=== PATIENT | male | born 1990 | race Caucasian/White ===

== ENCOUNTER 2016-12-23 17:38 | Emergency (ER) | payer OTHER ==
[~2016-12-23] VITALS: Ht 185.4 cm; Wt 81.8 kg
[2016-12-23] MEDS ORDERED: GABA-531 PO (17:42)
[2016-12-23] MEDS ORDERED: GABAPENTIN 300 MG CAPSULE PO ONE (20:15)
[2016-12-23 20:21] VITALS: BP 129/82
== END 2016-12-23 20:23 | disposition home or self-care (01) ==
LOC: EMS 17:40
DX: Z76.0 Encounter for issue of repeat prescription (principal); F17.210 Nicotine dependence, cigarettes, uncomplicated
CPT/HCPCS: 99283

== ENCOUNTER 2018-03-04 15:50 | Emergency (ER) | payer OTHER ==
[~2018-03-04] VITALS: Ht 175.3 cm; Wt 72.7 kg
[~2018-03-04 15:50] MED LIST: GABA-531 PO
[2018-03-04] MEDS ORDERED: GABAPENTIN 400 MG CAPSULE PO ONE (16:30)
[2018-03-04] MEDS ORDERED: IBUPROFEN 600 MG TABLET PO ONE (16:30)
[2018-03-04 17:19] VITALS: BP 145/82
== END 2018-03-04 17:21 | disposition home or self-care (01) ==
LOC: EMS 15:51
DX: S60.221A Contusion of right hand, initial encounter (principal); F41.9 Anxiety disorder, unspecified; G62.9 Polyneuropathy, unspecified; F17.210 Nicotine dependence, cigarettes, uncomplicated; F19.90 Other psychoactive substance use, unspecified, uncomplicated; Y04.0XXA Assault by unarmed brawl or fight, initial encounter; Y93.89 Activity, other specified; Y92.148 Other place in prison as the place of occurrence of the external cause; Y99.8 Other external cause status
CPT/HCPCS: 99284; 99406

== ENCOUNTER 2018-03-11 15:41 | Emergency (ER) | payer OTHER ==
[~2018-03-11] VITALS: Ht 185.4 cm; Wt 72.7 kg
[2018-03-11] MEDS ORDERED: GABAPENTIN 400 MG CAPSULE PO ONE (17:00)
[2018-03-11 17:17] VITALS: BP 130/90
== END 2018-03-11 17:19 | disposition home or self-care (01) ==
LOC: EMS 15:41
DX: M79.601 Pain in right arm (principal); Z76.0 Encounter for issue of repeat prescription; G62.9 Polyneuropathy, unspecified; Z79.899 Other long term (current) drug therapy
CPT/HCPCS: 99283

== ENCOUNTER 2018-09-07 19:17 | Emergency (ER) | payer OTHER | END 2018-09-07 20:25 | disposition left against medical advice (07) | LOC: EMS 19:18 | DX: Z53.21 Procedure and treatment not carried out due to patient leaving prior to being seen by health care provider (principal) ==

== ENCOUNTER 2019-12-11 18:25 | Emergency (ER) | payer MEDICAID, OTHER ==
[~2019-12-11] VITALS: Ht 185.4 cm; Wt 85.5 kg
[~2019-12-11 18:25] MED LIST changes: +GABA-1181 PO; -GABA-531 PO
[2019-12-11 19:45] VITALS: BP 143/90
[2019-12-11 20:12] LABS: HEMOGLOBIN 14.6 g/dL (13.5-17.5); RED BLOOD CELL COUNT(AUTO) 4.83 MIL/uL (4.50-5.90)
[2019-12-11 20:13] LABS: BASOPHILS % (AUTO) 0.6 % (0.0-2.0); EOSINOPHILS % (AUTO) 0.3 % (1.0-6.0); HEMATOCRIT 44.7 % (41-53); LYMPHOCYTES % (AUTO) 30.5 % (22.0-44.0); MEAN CORPUSCULAR HEMOGLOBIN 30.1 pg (26.0-34.0); MEAN CORPUSCULAR HGB CONC 32.5 G/dL (31.0-37.0); MEAN CORPUSCULAR VOLUME 93 fL (80-100); MONOCYTES # (AUTO) 0.7 K/uL (0.1-1.0); MONOCYTES % (AUTO) 10.5 % (2.0-9.0); NEUTROPHILS # (AUTO) 3.9 K/uL (1.8-7.7); NEUTROPHILS % (AUTO) 58.1 % (40.0-70.0); PLATELET COUNT (AUTO) 239 K/uL (150-450); RED CELL DISTRIBUTION WIDTH 13.9 % (11.5-14.5)
[2019-12-11 20:21] LABS: ANION GAP 5 mmol/L (8-16); CALCIUM, TOTAL 9.5 mg/dL (8.8-10.5); CARBON DIOXIDE 31 mmol/L (22-29); CHLORIDE 104 mmol/L (98-107); CREATININE 0.78 mg/dL (0.60-1.30); GLOMERULAR FILTR. RATE CALC > 60 mL/min (>60); GLUCOSE,RANDOM 109 mg/dL (70-110); SODIUM SERUM 140 mmol/L (136-145); UREA NITROGEN, BLOOD 13 mg/dL (7-18)
[2019-12-11 20:26] LABS: ALANINE AMINOTRANSFERASE 34 U/L (12-78); ALBUMIN 4.1 g/dL (3.4-5.0); ALKALINE PHOSPHATASE 106 U/L (46-116); ASPARTATE AMINOTRANSFERASE 44 U/L (15-37); BILIRUBIN,TOTAL 0.9 mg/dL (0.1-1.0); TOTAL PROTEIN, SERUM 8.6 g/dL (6.4-8.2)
== END 2019-12-11 20:50 | disposition left against medical advice (07) ==
LOC: EMS 18:25
DX: F31.9 Bipolar disorder, unspecified (principal); F11.90 Opioid use, unspecified, uncomplicated
CPT/HCPCS: 36415; 80053; 85025; 99284; G0480

== ENCOUNTER 2019-12-11 21:42 | Inpatient (IN) | payer MEDICAID, OTHER ==
[~2019-12-11] VITALS: Ht 182.9 cm; Wt 69.0 kg
[2019-12-11] MEDS ORDERED: MIDAZOLAM HCL 5 MG/ML VIAL IM ONE (22:15)
[2019-12-11] MEDS ORDERED: QUEtiapine FUMARATE 100 MG TABLET PO PRN (23:30)
[2019-12-11] MEDS ORDERED: ZOLPIDEM TARTRATE 10 MG TABLET PO PRN (23:30)
[2019-12-12] MEDS: LORazepam 2 MG TABLET PO PRN ×2 (06:22→09:12)
[2019-12-12 06:53] LABS: APPEARANCE,URINE CLOUDY (CLEAR); BILIRUBIN,URINE NEGATIVE (NEGATIVE); GLUCOSE, URINE (UA) NEGATIVE (NEGATIVE); KETONES,URINE 15 mg/dL (NEGATIVE); LEUKOCYTE ESTERASE ,URINE NEGATIVE (NEGATIVE); NITRATE,URINE NEGATIVE (NEGATIVE); OCCULT BLOOD,URINE NEGATIVE (NEGATIVE); PH,URINE 6.5 (5.0-8.0); PROTEIN,URINE TRACE (NEGATIVE)
[2019-12-12 06:59] LABS: AMPHET/METH SCREEN,URINE POSITIVE (NEGATIVE); BARBITURATE SCREEN, URINE NEGATIVE (NEGATIVE); BENZODIAZEPINES SCREEN,URINE POSITIVE (NEGATIVE); CANNABINOID SCREEN,URINE NEGATIVE (NEGATIVE); COCAINE SCREEN,URINE NEGATIVE (NEGATIVE); METHADONE SCREEN, URINE NEGATIVE (NEGATIVE); OPIATE SCREEN,URINE NEGATIVE (NEGATIVE)
[2019-12-12 07:03] LABS: PHENCYCLIDINE SCREEN,URINE NEGATIVE (NEGATIVE)
[2019-12-12] MEDS ORDERED: LORazepam 2 MG/ML VIAL IM ONE (09:15)
[2019-12-12] MEDS ORDERED: HALOPERIDOL LACTATE 5 MG/ML VIAL IM ONE (09:15)
[2019-12-12] MEDS ORDERED: DiphenhydrAMINE HCL 50 MG/ML VIAL IM ONE (09:15)
[2019-12-12 14:35] VITALS: BP 125/80
[2019-12-12] MEDS: GABAPENTIN 400 MG CAPSULE PO SCH (17:00)
[2019-12-12] MEDS: OLANZapine 5 MG TABLET PO SCH (21:00)
[2019-12-12] MEDS: DIVALPROEX SODIUM 500 MG DR TABLET PO SCH (21:00)
[2019-12-13 05:16] VITALS: BP 132/75
[2019-12-13] MEDS: GABAPENTIN 400 MG CAPSULE PO SCH ×3 (08:22→16:55)
[2019-12-13] MEDS: DIVALPROEX SODIUM 500 MG DR TABLET PO SCH ×2 (08:22→20:25)
[2019-12-13] MEDS: OLANZapine 5 MG TABLET PO SCH ×2 (08:23→20:25)
[2019-12-13 14:22] VITALS: BP 101/76
[2019-12-13] MEDS: LORazepam 2 MG TABLET PO PRN (16:55)
[2019-12-13 17:10] VITALS: BP 116/63
[2019-12-14 06:02] VITALS: BP 118/71
[2019-12-14 08:13] VITALS: BP 108/67
[2019-12-14] MEDS: DIVALPROEX SODIUM 500 MG DR TABLET PO SCH ×2 (08:54→20:46)
[2019-12-14] MEDS: GABAPENTIN 400 MG CAPSULE PO SCH ×3 (08:54→16:44)
[2019-12-14] MEDS: OLANZapine 5 MG TABLET PO SCH ×2 (08:54→20:46)
[2019-12-14 09:31] LABS: CHOL/HDL RATIO 2.9 (4.2-7.3)
[2019-12-14] MEDS: LORazepam 2 MG TABLET PO PRN (16:44)
[2019-12-14 17:17] VITALS: BP 102/53
[2019-12-15 06:00] VITALS: BP 105/71
[2019-12-15 08:18] VITALS: BP 108/70
[2019-12-15] MEDS: DIVALPROEX SODIUM 500 MG DR TABLET PO SCH (08:28)
[2019-12-15] MEDS: GABAPENTIN 400 MG CAPSULE PO SCH ×2 (08:28→13:12)
[2019-12-15] MEDS: OLANZapine 5 MG TABLET PO SCH (08:29)
[2019-12-15] MEDS ORDERED: DIVA-112 PO (10:55)
[2019-12-15] MEDS ORDERED: OLAN5TAB2 PO (10:55)
== END 2019-12-15 13:38 | disposition home or self-care (01) | DRG 885 ==
LOC: EMS 21:42 → B2X 22:30 → B2S 12-12 07:21 → UNDOADMIN 12-12 07:21 → B3A 12-12 13:16
DX: F31.2 Bipolar disorder, current episode manic severe with psychotic features (principal); R45.851 Suicidal ideations; G62.9 Polyneuropathy, unspecified; F15.10 Other stimulant abuse, uncomplicated; F10.10 Alcohol abuse, uncomplicated; F19.10 Other psychoactive substance abuse, uncomplicated; Z71.51 Drug abuse counseling and surveillance of drug abuser; Z91.14 Patient's other noncompliance with medication regimen; Z71.41 Alcohol abuse counseling and surveillance of alcoholic
CPT/HCPCS: J1200; J1630; J2060; J2250

== ENCOUNTER 2019-12-16 13:40 | Emergency (ER) | payer MEDICAID, OTHER ==
[~2019-12-16] VITALS: Ht 182.9 cm; Wt 68.2 kg
[~2019-12-16 13:40] MED LIST changes: +DIVA-112 PO; +OLAN5TAB2 PO
[2019-12-16] MEDS ORDERED: LORazepam 2 MG/ML VIAL IVP ONE (14:15)
[2019-12-16] MEDS ORDERED: SODIUM CHLORIDE 0.9% 1,000 ML IV ONE (14:15)
[2019-12-16 14:55] LABS: BASOPHILS % (AUTO) 0.3 % (0.0-2.0); EOSINOPHILS % (AUTO) 0.1 % (1.0-6.0); HEMATOCRIT 42.5 % (41-53); HEMOGLOBIN 14.1 g/dL (13.5-17.5); LYMPHOCYTES # (AUTO) 0.9 K/uL (1.0-4.8); LYMPHOCYTES % (AUTO) 16.3 % (22.0-44.0); MEAN CORPUSCULAR HEMOGLOBIN 30.7 pg (26.0-34.0); MEAN CORPUSCULAR HGB CONC 33.2 G/dL (31.0-37.0); MEAN CORPUSCULAR VOLUME 93 fL (80-100); MONOCYTES # (AUTO) 0.4 K/uL (0.1-1.0); MONOCYTES % (AUTO) 7.5 % (2.0-9.0); NEUTROPHILS # (AUTO) 4.2 K/uL (1.8-7.7); NEUTROPHILS % (AUTO) 75.8 % (40.0-70.0); PLATELET COUNT (AUTO) 188 K/uL (150-450); RED BLOOD CELL COUNT(AUTO) 4.59 MIL/uL (4.50-5.90); RED CELL DISTRIBUTION WIDTH 13.3 % (11.5-14.5)
[2019-12-16 15:15] LABS: ANION GAP 4 mmol/L (8-16); CARBON DIOXIDE 30 mmol/L (22-29); CHLORIDE 103 mmol/L (98-107); GLOMERULAR FILTR. RATE CALC > 60 mL/min (>60); GLUCOSE,RANDOM 117 mg/dL (70-110); POTASSIUM 4.4 mmol/L (3.5-5.1); SODIUM SERUM 137 mmol/L (136-145); UREA NITROGEN, BLOOD 7 mg/dL (7-18)
[2019-12-16 15:51] LABS: CREATINE KINASE, TOTAL ONLY 300 U/L (39-308)
[2019-12-16 16:30] VITALS: BP 134/79
== END 2019-12-16 17:13 | disposition home or self-care (01) ==
LOC: EMS 13:41
DX: F15.10 Other stimulant abuse, uncomplicated (principal); R00.2 Palpitations; F41.9 Anxiety disorder, unspecified
CPT/HCPCS: 36415; 80048; 82550; 85025; 93005; 99284; J7030

== ENCOUNTER 2020-04-03 03:08 | Emergency (ER) | payer OTHER ==
[~2020-04-03] VITALS: Ht 185.4 cm; Wt 63.6 kg
[2020-04-03 03:31] LABS: BASOPHILS % (AUTO) 0.4 % (0.0-2.0); EOSINOPHILS % (AUTO) 0.1 % (1.0-6.0); HEMATOCRIT 42.4 % (41-53); HEMOGLOBIN 15.1 g/dL (13.5-17.5); LYMPHOCYTES % (AUTO) 22.5 % (22.0-44.0); MEAN CORPUSCULAR HEMOGLOBIN 33.3 pg (26.0-34.0); MEAN CORPUSCULAR HGB CONC 35.5 G/dL (31.0-37.0); MEAN CORPUSCULAR VOLUME 94 fL (80-100); MONOCYTES % (AUTO) 11.8 % (2.0-9.0); NEUTROPHILS # (AUTO) 5.7 K/uL (1.8-7.7); NEUTROPHILS % (AUTO) 65.2 % (40.0-70.0); PLATELET COUNT (AUTO) 240 K/uL (150-450); RED BLOOD CELL COUNT(AUTO) 4.53 MIL/uL (4.50-5.90); RED CELL DISTRIBUTION WIDTH 14.1 % (11.5-14.5)
[2020-04-03 03:39] LABS: ANION GAP 9 mmol/L (8-16); CALCIUM, TOTAL 9.8 mg/dL (8.8-10.5); CARBON DIOXIDE 29 mmol/L (22-29); CHLORIDE 99 mmol/L (98-107); CREATININE 0.81 mg/dL (0.60-1.30); GLOMERULAR FILTR. RATE CALC > 60 mL/min (>60); GLUCOSE,RANDOM 110 mg/dL (70-110); POTASSIUM 4.1 mmol/L (3.5-5.1); SODIUM SERUM 137 mmol/L (136-145); UREA NITROGEN, BLOOD 13 mg/dL (7-18)
[2020-04-03 03:46] LABS: ALANINE AMINOTRANSFERASE 61 U/L (12-78); ALBUMIN 4.1 g/dL (3.4-5.0); ALKALINE PHOSPHATASE 100 U/L (46-116); ASPARTATE AMINOTRANSFERASE 73 U/L (15-37); BILIRUBIN,TOTAL 0.7 mg/dL (0.1-1.0)
[2020-04-03 03:47] LABS: VALPROIC ACID < 3 mcg/mL (50-100)
[2020-04-03] MEDS: HALOPERIDOL LACTATE 5 MG/ML VIAL IM ONE (04:49)
[2020-04-03] MEDS: LORazepam 2 MG/ML VIAL IM ONE (04:49)
[2020-04-03 04:51] LABS: AMPHET/METH SCREEN,URINE POSITIVE (NEGATIVE); BARBITURATE SCREEN, URINE NEGATIVE (NEGATIVE); BENZODIAZEPINES SCREEN,URINE NEGATIVE (NEGATIVE); CANNABINOID SCREEN,URINE POSITIVE (NEGATIVE); COCAINE SCREEN,URINE NEGATIVE (NEGATIVE); METHADONE SCREEN, URINE NEGATIVE (NEGATIVE); OPIATE SCREEN,URINE NEGATIVE (NEGATIVE)
[2020-04-03 04:52] LABS: PHENCYCLIDINE SCREEN,URINE NEGATIVE (NEGATIVE)
[2020-04-03 07:56] VITALS: BP 130/80
== END 2020-04-03 09:25 | disposition home or self-care (01) ==
LOC: EMS 03:08
DX: S00.212A Abrasion of left eyelid and periocular area, initial encounter (principal); S00.211A Abrasion of right eyelid and periocular area, initial encounter; S80.811A Abrasion, right lower leg, initial encounter; F15.10 Other stimulant abuse, uncomplicated; F31.9 Bipolar disorder, unspecified; F11.90 Opioid use, unspecified, uncomplicated; X78.9XXA Intentional self-harm by unspecified sharp object, initial encounter; Y93.89 Activity, other specified; Y92.89 Other specified places as the place of occurrence of the external cause; Y99.8 Other external cause status
CPT/HCPCS: 36415; 80053; 80164; 80307; 85025; 96372; 99291; G0480; J1630; J2060